=== PATIENT | female | born 1960 | race Caucasian/White ===

== ENCOUNTER 2018-02-21 14:49 | Inpatient (IN) | payer OTHER, BC ==
[~2018-02-21] VITALS: Ht 157.5 cm; Wt 69.9 kg
[2018-02-21] MEDS ORDERED: acetaminophen 325mg tablet PO ONE (15:05)
[2018-02-21 15:58] LABS: BASOPHILS # (AUTO) 0.1 X10'3 (0-0.2); BASOPHILS % (AUTO) 0.3 % (0-1); EOSINOPHILS % (AUTO) 0 % (0-6); HEMATOCRIT 34.6 % (35.0-45.0); HEMOGLOBIN 11.9 g/dl (12.0-16.0); LYMPHOCYTES # (AUTO) 1.5 X10'3 (1.1-4.8); LYMPHOCYTES % (AUTO) 5.8 % (21-51); MEAN CORPUSCULAR HEMOGLOBIN 31.2 PG (27.0-31.0); MEAN CORPUSCULAR HGB CONC 34.5 % (33.0-36.5); MEAN CORPUSCULAR VOLUME 90.4 FL (78-98); MEAN PLATELET VOLUME 7.8 FL (7.4-10.4); MONOCYTES # (AUTO) 0.1 X10'3 (0-0.9); MONOCYTES % (AUTO) 0.3 % (2-12); NEUTROPHILS # (AUTO) 24.5 X10'3 (1.8-7.7); NEUTROPHILS % (AUTO) 93.6 % (42-75); PLATELET COUNT 308 X10'3 (140-440); RED BLOOD COUNT 3.83 X10'6 (4.20-5.60); RED CELL DISTRIBUTION WIDTH 15.2 % (11.5-14.5)
[2018-02-21 16:01] LABS: WHITE BLOOD COUNT 26.2 X10'3 (4.5-11.0)
[2018-02-21] MEDS ORDERED: acetaminophen 325mg tablet PO STA (16:05)
[2018-02-21] MEDS ORDERED: normal saline 1000ML IV soln IV ONE (16:05)
[2018-02-21 16:12] LABS: ALANINE AMINOTRANSFERASE 30 U/L (12-78); ALBUMIN 3.5 G/DL (3.4-5.0); ALBUMIN/GLOBULIN RATIO 0.9 (1.1-1.5); ALKALINE PHOSPHATASE 138 IU/L (46-116); ANION GAP 6 (8-16); ASPARTATE AMINO TRANSFERASE 33 U/L (10-37); BILIRUBIN,TOTAL 0.9 MG/DL (0.1-1.0); BLOOD UREA NITROGEN 8 MG/DL (7-18); BUN/CREATININE RATIO 11.1 (6.6-38.0); CHLORIDE 93 MMOL/L (99-107); CREATININE 0.72 MG/DL (0.40-0.90); GLUCOSE 140 MG/DL (70-104); POTASSIUM 3.9 MMOL/L (3.5-5.1); SODIUM 126 MMOL/L (135-145); TOTAL CARBON DIOXIDE 26.7 MMOL/L (24-32); TOTAL PROTEIN 7.3 G/DL (6.4-8.2); eGFR 83 ML/MIN
[2018-02-21 16:18] LABS: PARTIAL THROMBOPLASTIN TIME 28 SECONDS (22-32); PROTHROMBIN TIME 10.7 SECONDS (9.0-12.0)
[2018-02-21 16:23] LABS: ANISOCYTOSIS 1+; PLATELET ESTIMATE NORMAL; TOTAL CELLS COUNTED 100
[2018-02-21 16:24] LABS: TOXIC GRANULATION 1+
[2018-02-21 17:23] LABS: CLARITY,URINE Clear (Clear); COLOR,URINE Yellow (Yellow); GLUCOSE, URINE Negative (Neg); KETONES,URINE Negative (Neg); LEUKOCYTE ESTERASE ,URINE Trace (Neg); NITRITES, URINE Negative (Neg); OCCULT BLOOD,URINE Small (Neg); PROTEIN,URINE Negative (Neg); UROBILINOGEN,URINE 0.2 E.U/dL (0.2-1.0)
[2018-02-21 17:24] LABS: UA COLLECTION TYPE CLN CATCH MIDSTREAM
[2018-02-21 17:29] LABS: BACTERIA,URINE 1+ /HPF (Neg); MUCUS STRANDS NONE SEEN /LPF (Neg); RENAL CELLS, URINE FEW /HPF; SQUAMOUS EPITHELIAL CELL,UR FEW /LPF (FEW); WBC,URINE 0-4 /HPF (0-4)
[2018-02-21] MEDS ORDERED: HYDROcodone/acetaminophen 5mg/325mg tablet PO PRN (17:30)
[2018-02-21] MEDS ORDERED: mag hydrox/Alum hydrox/simeth 30ml oral suspension PO PRN (17:30)
[2018-02-21] MEDS ORDERED: magnesium Cl slow-release 64mg tablet PO PRN (17:30)
[2018-02-21] MEDS ORDERED: HYDROcodone/acetaminophen 10/325mg tab PO PRN (17:30)
[2018-02-21] MEDS ORDERED: potassium Cl 20 mEq SR tablet PO PRN (17:30)
[2018-02-21] MEDS ORDERED: acetaminophen 325mg tablet PO PRN (17:30)
[2018-02-21] MEDS: K and/or MAG REPLACEMENT MC SCH (17:30)
[2018-02-21] MEDS ORDERED: magnesium/D5W IVPB 50 ML IV PRN (17:30)
[2018-02-21] MEDS ORDERED: magnesium hydroxide 30ml (MOM) UD suspension PO PRN (17:30)
[2018-02-21] MEDS ORDERED: ondansetron/PF 4mg/2ml inj IV PRN (17:30)
[2018-02-21] MEDS ORDERED: magnesium 4gm in 100ml NS 100 ML IV PRN (17:30)
[2018-02-21] MEDS ORDERED: potassium Cl 40MEQ/NS 500ml 500 ML IV PRN ×2 (17:30)
[2018-02-21] MEDS: normal saline 1000ml 1,000 ML IV SCH (18:17)
[2018-02-21] MEDS ORDERED: LOSA25TA96 PO ×2 (19:13→23:00)
[2018-02-21] MEDS ORDERED: SIMV20TA5 PO (19:13)
[2018-02-21 19:30] VITALS: BP 141/76
[2018-02-21] MEDS: acetaminophen 325mg tablet PO PRN (20:50)
[2018-02-21] MEDS ORDERED: temazepam 15mg capsule PO PRN (21:00)
[2018-02-21] MEDS ORDERED: ASPI-1265 PO (23:05)
[2018-02-21] MEDS ORDERED: OMEP40CA37 PO (23:06)
[2018-02-21 23:47] VITALS: BP 127/64
[2018-02-22] MEDS: benzocaine/menthol oral lozeng 1 EACH BOX MM PRN ×3 (00:11→09:27)
[2018-02-22] MEDS: normal saline 1000ml 1,000 ML IV SCH ×3 (03:12→22:17)
[2018-02-22] MEDS: guaiFENesin/DM oral syrup 5 ML CUP PO PRN ×2 (03:14→09:26)
[2018-02-22] MEDS: acetaminophen 325mg tablet PO PRN (03:15)
[2018-02-22 03:20] VITALS: BP 140/71
[2018-02-22 06:57] VITALS: BP 110/58
[2018-02-22 07:23] LABS: BASOPHILS # (AUTO) 0.1 X10'3 (0-0.2); BASOPHILS % (AUTO) 0.7 % (0-1); EOSINOPHILS # (AUTO) 0.1 X10'3 (0-0.9); EOSINOPHILS % (AUTO) 1.5 % (0-6); HEMATOCRIT 32.8 % (35.0-45.0); HEMOGLOBIN 11.1 g/dl (12.0-16.0); LYMPHOCYTES % (AUTO) 11.3 % (21-51); MEAN CORPUSCULAR HEMOGLOBIN 30.9 PG (27.0-31.0); MEAN CORPUSCULAR HGB CONC 33.7 % (33.0-36.5); MEAN CORPUSCULAR VOLUME 91.6 FL (78-98); MONOCYTES # (AUTO) 0.3 X10'3 (0-0.9); MONOCYTES % (AUTO) 3.9 % (2-12); NEUTROPHILS # (AUTO) 7.1 X10'3 (1.8-7.7); NEUTROPHILS % (AUTO) 82.6 % (42-75); PLATELET COUNT 253 X10'3 (140-440); RED BLOOD COUNT 3.59 X10'6 (4.20-5.60); RED CELL DISTRIBUTION WIDTH 15.4 % (11.5-14.5); WHITE BLOOD COUNT 8.6 X10'3 (4.5-11.0)
[2018-02-22 07:37] LABS: ALANINE AMINOTRANSFERASE 27 U/L (12-78); ALBUMIN/GLOBULIN RATIO 0.9 (1.1-1.5); ALKALINE PHOSPHATASE 115 IU/L (46-116); ANION GAP 8 (8-16); ASPARTATE AMINO TRANSFERASE 26 U/L (10-37); BILIRUBIN,TOTAL 0.7 MG/DL (0.1-1.0); BLOOD UREA NITROGEN 5 MG/DL (7-18); BUN/CREATININE RATIO 7.8 (6.6-38.0); CALCIUM 8.3 MG/DL (8.5-10.1); CHLORIDE 102 MMOL/L (99-107); CREATININE 0.64 MG/DL (0.40-0.90); GLUCOSE 111 MG/DL (70-104); MAGNESIUM 2.2 MG/DL (1.5-2.4); POTASSIUM 3.7 MMOL/L (3.5-5.1); SODIUM 135 MMOL/L (135-145); TOTAL CARBON DIOXIDE 25.4 MMOL/L (24-32); TOTAL PROTEIN 6.4 G/DL (6.4-8.2); eGFR > 90 ML/MIN
[2018-02-22 07:40] LABS: ANISOCYTOSIS 1+; PLATELET ESTIMATE NORMAL; TOTAL CELLS COUNTED 100
[2018-02-22] MEDS: K and/or MAG REPLACEMENT MC SCH (08:00)
[2018-02-22] MEDS: enoxaparin 40mg/0.4ml syringe SUBCUT SCH (08:15)
[2018-02-22] MEDS ORDERED: OMEP20TA23 PO (08:27)
[2018-02-22 08:30] LABS: C DIFF ANTIGEN POSITIVE (NEGATIVE); C DIFF SPECIMEN=DIARRHEA? ACCEPTABLE; C DIFFICILE TOXINS A&B POSITIVE (Neg)
[2018-02-22] MEDS ORDERED: aspirin 81mg tab.chew PO SCH (08:30)
[2018-02-22] MEDS ORDERED: losartan 25mg tablet PO SCH (09:15)
[2018-02-22 11:52] VITALS: BP 127/68
[2018-02-22] MEDS: HYDROcodone & chlorphen. 10-8mg/5ml oral susp. PO PRN (18:56)
[2018-02-22 19:00] VITALS: BP 130/68
[2018-02-22] MEDS: SIMVASTATIN 40 MG PO SCH (20:45)
[2018-02-23] VITALS: BP 123/63
[2018-02-23] MEDS: benzocaine/menthol oral lozeng 1 EACH BOX MM PRN (01:29)
[2018-02-23 03:42] LABS: BASOPHILS # (AUTO) 0.1 X10'3 (0-0.2); BASOPHILS % (AUTO) 1.2 % (0-1); EOSINOPHILS # (AUTO) 0.3 X10'3 (0-0.9); EOSINOPHILS % (AUTO) 4.8 % (0-6); HEMATOCRIT 31.2 % (35.0-45.0); HEMOGLOBIN 10.4 g/dl (12.0-16.0); LYMPHOCYTES # (AUTO) 1.4 X10'3 (1.1-4.8); LYMPHOCYTES % (AUTO) 20.1 % (21-51); MEAN CORPUSCULAR HEMOGLOBIN 30.6 PG (27.0-31.0); MEAN CORPUSCULAR HGB CONC 33.5 % (33.0-36.5); MEAN CORPUSCULAR VOLUME 91.3 FL (78-98); MEAN PLATELET VOLUME 7.7 FL (7.4-10.4); MONOCYTES # (AUTO) 0.8 X10'3 (0-0.9); MONOCYTES % (AUTO) 11.7 % (2-12); NEUTROPHILS # (AUTO) 4.5 X10'3 (1.8-7.7); NEUTROPHILS % (AUTO) 62.2 % (42-75); PLATELET COUNT 258 X10'3 (140-440); RED BLOOD COUNT 3.41 X10'6 (4.20-5.60); RED CELL DISTRIBUTION WIDTH 15.4 % (11.5-14.5); WHITE BLOOD COUNT 7.2 X10'3 (4.5-11.0)
[2018-02-23 04:03] LABS: ALANINE AMINOTRANSFERASE 24 U/L (12-78); ALBUMIN 2.6 G/DL (3.4-5.0); ALBUMIN/GLOBULIN RATIO 0.8 (1.1-1.5); ALKALINE PHOSPHATASE 92 IU/L (46-116); ANION GAP 9 (8-16); ASPARTATE AMINO TRANSFERASE 18 U/L (10-37); BILIRUBIN,TOTAL 0.4 MG/DL (0.1-1.0); BLOOD UREA NITROGEN 6 MG/DL (7-18); CALCIUM 8.1 MG/DL (8.5-10.1); CHLORIDE 103 MMOL/L (99-107); CREATININE 0.67 MG/DL (0.40-0.90); GLUCOSE 95 MG/DL (70-104); MAGNESIUM 2.1 MG/DL (1.5-2.4); POTASSIUM 3.4 MMOL/L (3.5-5.1); SODIUM 138 MMOL/L (135-145); TOTAL CARBON DIOXIDE 26.5 MMOL/L (24-32); TOTAL PROTEIN 5.7 G/DL (6.4-8.2); eGFR 90 ML/MIN
[2018-02-23] MEDS: potassium Cl 20 mEq SR tablet PO PRN ×2 (04:25→07:29)
[2018-02-23 05:24] LABS: ANISOCYTOSIS 1+; PLATELET ESTIMATE NORMAL; TOTAL CELLS COUNTED 100
[2018-02-23] MEDS: normal saline 1000ml 1,000 ML IV SCH ×2 (07:29→19:26)
[2018-02-23] MEDS: aspirin 81mg tab.chew PO SCH (07:29)
[2018-02-23] MEDS: pantoprazole 40mg Tablet.DR PO SCH (07:29)
[2018-02-23] MEDS: losartan 50mg tablet PO SCH (07:29)
[2018-02-23 07:30] VITALS: BP 131/70
[2018-02-23] MEDS: enoxaparin 40mg/0.4ml syringe SUBCUT SCH (07:30)
[2018-02-23 08:00] VITALS: BP 131/70
[2018-02-23] MEDS: K and/or MAG REPLACEMENT MC SCH (08:00)
[2018-02-23 11:00] VITALS: BP 110/69
[2018-02-23 20:00] VITALS: BP 104/69
[2018-02-23] MEDS: guaiFENesin/DM oral syrup 5 ML CUP PO PRN (20:43)
[2018-02-23] MEDS: SIMVASTATIN 40 MG PO SCH (21:00)
[2018-02-23 23:30] VITALS: BP 105/64
[2018-02-24] MEDS: HYDROcodone & chlorphen. 10-8mg/5ml oral susp. PO PRN (00:37)
[2018-02-24] MEDS: normal saline 1000ml 1,000 ML IV SCH ×3 (02:34→20:38)
[2018-02-24] MEDS ORDERED: benzonatate 100mg capsule PO PRN (02:45)
[2018-02-24 05:01] LABS: BASOPHILS % (AUTO) 0.1 % (0-1); EOSINOPHILS # (AUTO) 0.4 X10'3 (0-0.9); EOSINOPHILS % (AUTO) 1.9 % (0-6); HEMATOCRIT 31.6 % (35.0-45.0); HEMOGLOBIN 10.5 g/dl (12.0-16.0); LYMPHOCYTES # (AUTO) 2.5 X10'3 (1.1-4.8); LYMPHOCYTES % (AUTO) 10.7 % (21-51); MEAN CORPUSCULAR HEMOGLOBIN 30.8 PG (27.0-31.0); MEAN CORPUSCULAR HGB CONC 33.4 % (33.0-36.5); MEAN CORPUSCULAR VOLUME 92.3 FL (78-98); MEAN PLATELET VOLUME 8.2 FL (7.4-10.4); MONOCYTES # (AUTO) 0.2 X10'3 (0-0.9); MONOCYTES % (AUTO) 0.9 % (2-12); NEUTROPHILS # (AUTO) 20.3 X10'3 (1.8-7.7); NEUTROPHILS % (AUTO) 86.4 % (42-75); PLATELET COUNT 336 X10'3 (140-440); RED BLOOD COUNT 3.42 X10'6 (4.20-5.60); RED CELL DISTRIBUTION WIDTH 15.4 % (11.5-14.5); WHITE BLOOD COUNT 23.4 X10'3 (4.5-11.0)
[2018-02-24 05:28] LABS: ALANINE AMINOTRANSFERASE 28 U/L (12-78); ALBUMIN 2.9 G/DL (3.4-5.0); ALBUMIN/GLOBULIN RATIO 0.9 (1.1-1.5); ALKALINE PHOSPHATASE 160 IU/L (46-116); ANION GAP 8 (8-16); ASPARTATE AMINO TRANSFERASE 25 U/L (10-37); BILIRUBIN,TOTAL 0.3 MG/DL (0.1-1.0); BLOOD UREA NITROGEN 3 MG/DL (7-18); BUN/CREATININE RATIO 4.8 (6.6-38.0); CALCIUM 8.4 MG/DL (8.5-10.1); CHLORIDE 104 MMOL/L (99-107); CREATININE 0.62 MG/DL (0.40-0.90); GLUCOSE 92 MG/DL (70-104); POTASSIUM 3.4 MMOL/L (3.5-5.1); SODIUM 139 MMOL/L (135-145); TOTAL CARBON DIOXIDE 27.4 MMOL/L (24-32); TOTAL PROTEIN 6.1 G/DL (6.4-8.2); eGFR > 90 ML/MIN
[2018-02-24 06:20] LABS: PLATELET ESTIMATE NORMAL; TOTAL CELLS COUNTED 100
[2018-02-24] MEDS: K and/or MAG REPLACEMENT MC SCH (08:38)
[2018-02-24] MEDS: aspirin 81mg tab.chew PO SCH (08:42)
[2018-02-24] MEDS: losartan 50mg tablet PO SCH (08:42)
[2018-02-24] MEDS: enoxaparin 40mg/0.4ml syringe SUBCUT SCH (08:42)
[2018-02-24] MEDS: pantoprazole 40mg Tablet.DR PO SCH (08:42)
[2018-02-24 11:00] VITALS: BP 120/68
[2018-02-24] MEDS: potassium Cl 20 mEq SR tablet PO PRN (11:28)
[2018-02-24] MEDS ORDERED: guaiFENesin 200 MG/10 ML oral syrup UD cup PO PRN (15:55)
[2018-02-24 20:00] VITALS: BP 129/72
[2018-02-24] MEDS: benzocaine/menthol oral lozeng 1 EACH BOX MM PRN (20:38)
[2018-02-24] MEDS: SIMVASTATIN 40 MG PO SCH (21:00)
[2018-02-24 23:30] VITALS: BP 131/72
[2018-02-25 05:34] LABS: BASOPHILS % (AUTO) 0 % (0-1); EOSINOPHILS # (AUTO) 0.3 X10'3 (0-0.9); EOSINOPHILS % (AUTO) 0.6 % (0-6); HEMATOCRIT 31.9 % (35.0-45.0); HEMOGLOBIN 10.6 g/dl (12.0-16.0); LYMPHOCYTES # (AUTO) 2.8 X10'3 (1.1-4.8); LYMPHOCYTES % (AUTO) 6.3 % (21-51); MEAN CORPUSCULAR HEMOGLOBIN 30.8 PG (27.0-31.0); MEAN CORPUSCULAR HGB CONC 33.3 % (33.0-36.5); MEAN CORPUSCULAR VOLUME 92.7 FL (78-98); MEAN PLATELET VOLUME 7.7 FL (7.4-10.4); MONOCYTES # (AUTO) 0.3 X10'3 (0-0.9); MONOCYTES % (AUTO) 0.7 % (2-12); NEUTROPHILS # (AUTO) 41.1 X10'3 (1.8-7.7); NEUTROPHILS % (AUTO) 92.4 % (42-75); PLATELET COUNT 387 X10'3 (140-440); RED BLOOD COUNT 3.45 X10'6 (4.20-5.60); RED CELL DISTRIBUTION WIDTH 15.7 % (11.5-14.5)
[2018-02-25 06:11] LABS: ALANINE AMINOTRANSFERASE 32 U/L (12-78); ALBUMIN 3.1 G/DL (3.4-5.0); ALBUMIN/GLOBULIN RATIO 0.9 (1.1-1.5); ALKALINE PHOSPHATASE 132 IU/L (46-116); ANION GAP 10 (8-16); ASPARTATE AMINO TRANSFERASE 29 U/L (10-37); BILIRUBIN,TOTAL 0.3 MG/DL (0.1-1.0); BLOOD UREA NITROGEN 3 MG/DL (7-18); BUN/CREATININE RATIO 4.7 (6.6-38.0); CHLORIDE 103 MMOL/L (99-107); CREATININE 0.64 MG/DL (0.40-0.90); GLUCOSE 68 MG/DL (70-104); MAGNESIUM 2.1 MG/DL (1.5-2.4); POTASSIUM 3.3 MMOL/L (3.5-5.1); SODIUM 139 MMOL/L (135-145); TOTAL PROTEIN 6.6 G/DL (6.4-8.2); eGFR > 90 ML/MIN
[2018-02-25 06:13] LABS: WHITE BLOOD COUNT 44.5 X10'3 (4.5-11.0)
[2018-02-25 06:35] LABS: ANISOCYTOSIS 1+; BANDS% (MANUAL) 22 % (0-10); LYMPHOCYTES % (MANUAL) 5 % (21-51); METAMYLEOCYTES% (MANUAL) 3 % (0-0); MONOCYTES % (MANUAL) 6 % (2-12); NEUTROPHILS % (MANUAL) 64 % (42-75); NUCLEATED RED BLOOD CELLS 1 /100WBC (0-0); PLATELET ESTIMATE NORMAL; TOTAL CELLS COUNTED 100
[2018-02-25 06:36] LABS: POLYCHROMASIA 1+
[2018-02-25 07:38] VITALS: BP 133/73
[2018-02-25] MEDS: losartan 50mg tablet PO SCH (07:56)
[2018-02-25] MEDS: aspirin 81mg tab.chew PO SCH (07:56)
[2018-02-25] MEDS: pantoprazole 40mg Tablet.DR PO SCH (07:56)
[2018-02-25] MEDS: enoxaparin 40mg/0.4ml syringe SUBCUT SCH (07:56)
[2018-02-25] MEDS: SIMVASTATIN 40 MG PO SCH (07:58)
[2018-02-25] MEDS: K and/or MAG REPLACEMENT MC SCH (08:00)
[2018-02-25] MEDS ORDERED: iohexol 350MG/ML 100ml bottle IV ONE (08:46)
[2018-02-25] MEDS ORDERED: iohexol 300mg/ml 100ml inj. ONE (08:47)
[2018-02-25] MEDS: normal saline 1000ml 1,000 ML IV SCH (12:09)
[2018-02-25] MEDS ORDERED: BENZ-49 PO (15:46)
[2018-02-25] MEDS ORDERED: METR250T PO (16:41)
[2018-02-25] MEDS ORDERED: lactobacillus rhamnosus 10,000 MMU CELLS/CAPSULE PO SCH (20:00)
== END 2018-02-25 17:49 | disposition home or self-care (01) | DRG 872 ==
LOC: ER 14:50 → ED HOLD 17:26 → EDBEDREQ 18:36 → SUR 3N 19:27
PROVIDERS: ADMIT Family Medicine; ATTEND Internal Medicine
PROC: BW211ZZ Computerized Tomography (CT Scan) of Abdomen and Pelvis using Low Osmolar Contrast (ICD-10-PCS; principal; 2018-02-25)
DX: A41.9 Sepsis, unspecified organism (principal); E87.1 Hypo-osmolality and hyponatremia; A04.71 Enterocolitis due to Clostridium difficile, recurrent; I10 Essential (primary) hypertension; J04.0 Acute laryngitis; C50.911 Malignant neoplasm of unspecified site of right female breast; E78.5 Hyperlipidemia, unspecified; R73.03 Prediabetes; Z90.11 Acquired absence of right breast and nipple; Z88.0 Allergy status to penicillin; Z88.8 Allergy status to other drugs, medicaments and biological substances; Z92.21 Personal history of antineoplastic chemotherapy; Z80.8 Family history of malignant neoplasm of other organs or systems; Z82.5 Family history of asthma and other chronic lower respiratory diseases
CPT/HCPCS: 36415; 71046; 74177; 80053; 81001; 82948; 83036; 83605; 83735; 84145; 85025; 85610; 85730; 87040; 87045; 87046; 87070; 87088; 87324; 87449; 87502; 87503; 96365; 99285; J1650; J7030; Q9967